=== PATIENT | female | born 1955 | race Two or more races ===

== ENCOUNTER 2018-11-10 19:24 | Emergency (ER) | payer MEDICARE ==
[~2018-11-10] VITALS: Ht 157.5 cm; Wt 49.9 kg
[2018-11-10 19:28] VITALS: BP 117/61
--- NOTE | 2018-11-10 19:28 | NUR ---
ED Nurse Note: pt came from [facility]. per ems pt had fallen. pt aox4, unsure if she hit her head, c/o of generalized body pain. per ems they placed ice pack on her neck prior to arrival. no abrasions noted, skin intact Addendum: 11/10/18 at 2103 by PDELEON Amendment undone in EDM - 11/10/18 at 2309 by PDELEON ED Nurse Note: pt came from [facility]. per ems pt had fallen. pt aox3 pt knows name, place, purpose, but not time, unsure if she hit her head, c/o of generalized body pain. per ems they placed ice pack on her neck prior to arrival. no abrasions noted, skin intact Addendum: 11/10/18 at 2308 by PDELEON ED Nurse Note: pt BIB [facility], came from [facility]. per ems pt had fallen. pt aox4, unsure if she hit her head, c/o of generalized body pain. per ems they placed ice pack on her neck prior to arrival. no abrasions noted, skin intact
--- NOTE | 2018-11-10 19:29 | NUR ---
ED Nurse Note: pinkness noted on right knee cap, old bruises noted on lower right abd.
[2018-11-10] MEDS ORDERED: Morphine Sulfate 2mg/ml Inj(IV/IM USE ONLY) IVP ONE (19:45)
[2018-11-10 20:10] LABS: BASOPHILS % (AUTO) 1.6 % (0.0-2.0); EOSINOPHILS % (AUTO) 1.5 % (0.0-3.0); HEMATOCRIT 36.3 % (37.0-47.0); LYMPHOCYTES % (AUTO) 27.7 % (20.0-45.0); MEAN CORPUSCULAR VOLUME 80 FL (80-99); MONOCYTES % (AUTO) 6.1 % (1.0-10.0); NEUTROPHILS % (AUTO) 63.2 % (45.0-75.0); PLATELET COUNT 102 K/UL (150-450); RED BLOOD COUNT 4.57 M/UL (4.20-5.40); RED CELL DISTRIBUTION WIDTH 12.8 % (11.6-14.8)
[2018-11-10 20:26] LABS: ANION GAP 9 mmol/L (5-15); BLOOD UREA NITROGEN 35 mg/dL (7-18); CALCIUM 8.9 MG/DL (8.5-10.1); CARBON DIOXIDE 24 MMOL/L (21-32); CHLORIDE 106 MMOL/L (98-107); CREATININE 1.4 MG/DL (0.55-1.30); POTASSIUM 4.1 MMOL/L (3.5-5.1); SODIUM 139 MMOL/L (136-145)
[2018-11-10 20:30] LABS: ALANINE AMINOTRANSFERASE 17 U/L (12-78); ALBUMIN 3.3 G/DL (3.4-5.0); ALBUMIN/GLOBULIN RATIO 0.8 (1.0-2.7); ALKALINE PHOSPHATASE 100 U/L (46-116); ASPARTATE AMINO TRANSFERASE 20 U/L (15-37); BILIRUBIN,TOTAL 0.1 MG/DL (0.2-1.0)
--- NOTE | 2018-11-10 21:03 | NUR ---
ED Nurse Note: vre/cre and mrsa swabs intiated per protocol since pt came from nursing facility. pt refused vre swabs.
[2018-11-10 21:23] LABS: APPEARANCE,URINE CLEAR; BILIRUBIN, URINE NEGATIVE (NEGATIVE); GLUCOSE, URINE (UA) NEGATIVE (NEGATIVE); KETONES,URINE NEGATIVE (NEGATIVE); LEUKOCYTE ESTERASE ,URINE 3+ (NEGATIVE); NITRITE,URINE NEGATIVE (NEGATIVE); PH,URINE 5 (4.5-8.0); PROTEIN,URINE NEGATIVE (NEGATIVE); UROBILINOGEN,URINE NORMAL MG/DL (0.0-1.0)
[2018-11-10 21:26] LABS: COLOR,URINE YELLOW
[2018-11-10 21:27] VITALS: BP 133/73
--- NOTE | 2018-11-10 21:27 | NUR ---
ED Nurse Note: pt doesnt c/o pain at this time, room lights dimmed, pt is resting in bed. provied another blanket for comfort.
[2018-11-10] MEDS ORDERED: levETIRAcetam 1,000mg/NS100ml 100 ML IVPB ONE (21:30)
[2018-11-10] MEDS ORDERED: Morphine Sulfate 2mg/ml Inj(IV/IM USE ONLY) IVP PRN (21:45)
[2018-11-10] MEDS ORDERED: Zolpidem 5mg tab ORAL PRN (21:45)
[2018-11-10] MEDS ORDERED: Miralax 17gm pkt ORAL PRN (21:45)
[2018-11-10] MEDS ORDERED: LORazepam Inj 2mg/ml 1ml IV PRN (21:45)
--- NOTE | 2018-11-10 22:27 | NUR ---
ED Nurse Note: keppra infused compeletly, pt is sleeping in bed, pt shows no signs of distress at the moment, vss.
--- NOTE | 2018-11-10 22:48 | Emergency Room Report ---
History of Present Illness General Chief Complaint: Multiple Trauma/Fall Source: EMS Present Illness HPI 63-year-old female presents to ED for evaluation. Brought in by EMS status post fall. Coming from [facility]. patient complaiing of hip pain and bilateral leg pain. pain is sharp 8/10 nonradiating. states she also hit her head. denies any headache, blurry vision nausea or vomiting. denies chest pain or SOB. denies any other injuries. no other aggravating or releving factors, denies any other associated symptoms Allergies: Coded Allergies: No Known Allergies (Unverified , 11/10/18) Patient History Past Medical History: DM, HTN, AFib, CVA/TIA, psych hx Past Surgical History: pacemaker Pertinent Family History: none Social History: Denies: smoking, alcohol use, drug use Now: No Immunizations: UTD Reviewed Nursing Documentation: PMH: Agreed; PSxH: Agreed Nursing Documentation-PMH Hx Cardiac Problems: Yes - weakness, A Fib,angela cardia, pacemarker L chest Hx Hypertension: Yes Hx Diabetes: Yes History Of Psychiatric Problem: Yes - schizophrenia, anxiety Hx Cerebrovascular Accident: Yes - hyperlipidemia, cerebral aneurysm Review of Systems All Other Systems: negative except mentioned in HPI Physical Exam Vital Signs Date Time Temp Pulse Resp B/P (MAP) Pulse Ox O2 Delivery O2 Flow Rate FiO2 11/10/18 19:14 98.2 99 16 95 Room Air 11/10/18 19:28 117/61 Sp02 EP Interpretation: reviewed, normal General Appearance: mild distress, cachetic Head: normocephalic Eyes: bilateral eye normal inspection, bilateral eye PERRL, bilateral eye EOMI ENT: normal ENT inspection Neck: normal inspection Respiratory: chest non-tender, lungs clear, normal breath sounds, speaking full sentences Cardiovascular #1: regular rate, rhythm, no edema Gastrointestinal: normal bowel sounds, non tender, soft, non-distended, no guarding, no rebound Rectal: deferred Genitourinary: no CVA tenderness Musculoskeletal: tender - bilateral leg. pelvis Neurologic: alert, oriented x3, responsive, motor strength/tone normal, sensory intact, speech normal Psychiatric: normal inspection Skin: normal inspection Lymphatic: normal inspection Procedures Critical Care Time Critical Care Time i. I feel this is a highly complex case requiring extensive working including EKG/Rhythm strip, Xray/CT/US, Blood/urine lab work, repeat exams while in ED, and administration of strong opiates/narcotics for pain control, admission to hospital or close patient follow up. Total time: 60 min bedside evaluation and treatment excludes procedures (EKG). Reason for critical care: Subarachnoid hemorrhage Possible complications: hypotension, hypertension, VT, shock, arrhythmias, metabolic acidosis, end organ damage, respiratory failure. Interventions: Labs, x-rays, CT head and CT pelvis. Keppra. Discussion with neurosurgery at [facility] Course: Patient presenting with hip pain and leg pain status post fall. Also hit head. CT head shows subarachnoid with no mass effect or midline shift. CT pelvis negative. Patient on Lovenox 40 units daily. Patient given Keppra. No focal deficits. Protecting airway. Discussed with neurosurgery at [facility]. Consultations: nursing staff, EMS, family Performed by: Dr Frank Tolerated well condition = critical j. because of unstable vital signs this patient had a condition that could potentially threaten life or limb. I feel this is a critical patient who required my full attention while patient was considered critical. Total Critical Care Time excluding procedures was greater than 60 minutes Medical Decision Making Diagnostic Impression: Primary Impression: Subarachnoid hemorrhage Additional Impressions: Fall Qualified Codes: W19.XXXA - Unspecified fall, initial encounter Chronic kidney disease Qualified Codes: N18.9 - Chronic kidney disease, unspecified ER Course Hospital Course 63-year-old female presents with head injury and hip and leg pain status post fall Differential diagnosis includes- breakthrough seizure, alcohol abuse, noncompliance with medication Clinical course Patient placed on stretcher. Initial history and physical I ordered labs, pain meds, CT head and Pelvis. xrays of lower legs Labs- BUN/Cr elevated, no leukocytosis, hemoglobin/hematocrit stable X-rays of lower extremity show no obvious fracture or dislocation CT pelvis negative CT head shows subarachnoid with no midline shift or mass effect Patient protecting airway. No focal neurological deficits. Does not require intubation. BP stable Given loading dose of Keppra. Patient on Lovenox 40 units daily last dose was 13 hours prior to now. Discussed with neurosurgery the protamine will not be given Patient will be transferred at [facility] for higher level of care. Case endorsed to neurosurgeon i. I feel this is a highly complex case requiring extensive working including EKG/Rhythm strip, Xray/CT/US, Blood/urine lab work, repeat exams while in ED, and administration of strong opiates/narcotics for pain control, admission to hospital or close patient follow up. Diagnosis - subarachnoid hemorrhage, fall, CKD transferred in critical condition Labs Test 11/10/18 19:56 11/10/18 21:02 White Blood Count 7.0 K/UL (4.8-10.8) Red Blood Count 4.57 M/UL (4.20-5.40) Hemoglobin 12.0 G/DL (12.0-16.0) Hematocrit 36.3 % (37.0-47.0) Mean Corpuscular Volume 80 FL (80-99) Mean Corpuscular Hemoglobin 26.2 PG (27.0-31.0) Mean Corpuscular Hemoglobin Concent 33.0 G/DL (32.0-36.0) Red Cell Distribution Width 12.8 % (11.6-14.8) Platelet Count 102 K/UL (150-450) Mean Platelet Volume 7.6 FL (6.5-10.1) Neutrophils (%) (Auto) 63.2 % (45.0-75.0) Lymphocytes (%) (Auto) 27.7 % (20.0-45.0) Monocytes (%) (Auto) 6.1 % (1.0-10.0) Eosinophils (%) (Auto) 1.5 % (0.0-3.0) Basophils (%) (Auto) 1.6 % (0.0-2.0) Prothrombin Time 10.4 SEC (9.30-11.50) Prothromb Time International Ratio 1.0 (0.9-1.1) Activated Partial Thromboplast Time 26 SEC (23-33) Sodium Level 139 MMOL/L (136-145) Potassium Level 4.1 MMOL/L (3.5-5.1) Chloride Level 106 MMOL/L (98-107) Carbon Dioxide Level 24 MMOL/L (21-32) Anion Gap 9 mmol/L (5-15) Blood Urea Nitrogen 35 mg/dL (7-18) Creatinine 1.4 MG/DL (0.55-1.30) Estimat Glomerular Filtration Rate 37.8 mL/min (>60) Glucose Level 101 MG/DL (74-106) Calcium Level 8.9 MG/DL (8.5-10.1) Total Bilirubin 0.1 MG/DL (0.2-1.0) Aspartate Amino Transf (AST/SGOT) 20 U/L (15-37) Alanine Aminotransferase (ALT/SGPT) 17 U/L (12-78) Alkaline Phosphatase 100 U/L (46-116) Total Protein 7.4 G/DL (6.4-8.2) Albumin 3.3 G/DL (3.4-5.0) Globulin 4.1 g/dL Albumin/Globulin Ratio 0.8 (1.0-2.7) Urine Color Yellow Urine Appearance Clear Urine pH 5 (4.5-8.0) Urine Specific Hurt 1.020 (1.005-1.035) Urine Protein Negative (NEGATIVE) Urine Glucose (UA) Negative (NEGATIVE) Urine Ketones Negative (NEGATIVE) Urine Blood Negative (NEGATIVE) Urine Nitrite Negative (NEGATIVE) Urine Bilirubin Negative (NEGATIVE) Urine Urobilinogen Normal MG/DL (0.0-1.0) Urine Leukocyte Esterase 3+ (NEGATIVE) Urine RBC 2-4 /HPF (0 - 2) Urine WBC 5-10 /HPF (0 - 2) Urine Squamous Epithelial Cells Moderate /LPF (NONE/OCC) Urine Bacteria Moderate /HPF (NONE) Other X-Ray Diagnostic Results Other X-Ray Diagnostic Results #1: X-Ray ordered: R femur # of Views/Limited Vs Complete: 3 View Indication: Pain EP Interpretation: Yes Interpretation: no dislocation, no soft tissue swelling, no fractures Impression: No acute disease Electronically Signed by: Electronically signed by Wero Frank MD Other X-Ray Diagnostic Results #2: X-Ray ordered: L femur # of Views/Limited Vs Complete: 3 View Indication: Pain EP Interpretation: Yes Interpretation: no dislocation, no soft tissue swelling, no fractures Impression: No acute disease Electronically Signed by: Electronically signed by Wero Frank MD Other X-Ray Diagnostic Results #3: X-Ray ordered: R tibfib # of Views/Limited Vs Complete: 2 View Indication: Pain EP Interpretation: Yes Interpretation: no dislocation, no soft tissue swelling, no fractures Impression: No acute disease Electronically Signed by: Electronically signed by Wero Frank MD Other X-Ray Diagnostic Results #4: X-Ray ordered: L tibfib # of Views/Limited Vs Complete: 2 View Indication: Pain EP Interpretation: Yes Interpretation: no dislocation, no soft tissue swelling, no fractures Impression: No acute disease Electronically Signed by: Electronically signed by Wero Frank MD CT/MRI/US Diagnostic Results CT/MRI/US Diagnostic Results #1: Imaging Test Ordered: CT Head Impression subarachnoid hemorrhage. no midline shift. no mass effect CT/MRI/US Diagnostic Results #2: Imaging Test Ordered: CT Pelvis Impression no acute process Last Vital Signs Date Time Temp Pulse Resp B/P (MAP) Pulse Ox O2 Delivery O2 Flow Rate FiO2 11/10/18 21:27 98.3 69 18 133/73 100 Room Air Status: improved Disposition: [facility] Condition: Critical Referrals: En Ackerman DO (PCP) Wero Frank MD November 10, 2018 22:48
--- NOTE | 2018-11-10 23:04 | NUR ---
ED Nurse Note: 911 at bedside, report given to anuja meredith from [facility]. pt is aox3, skin intact, no signs of distress. pt is on room air. vss at the moment. pt has no belongings.
[2018-11-10 23:06] VITALS: BP 119/58
[2018-11-10 23:41] LABS: CREATINE KINASE 135 U/L (26-308)
[2018-11-11] MEDS ORDERED: NovoLOG Insulin Flexpen SUBQ SCH (06:30)
[2018-11-11] MEDS ORDERED: Heparin 5000 units/ml inj SUBQ SCH (09:00)
--- NOTE | 2018-11-11 10:27 | Diagnostic Imaging Report ---
Indication: Headache and head trauma Technique: Contiguous 5 mm thick transaxial imaging of the head obtained in a Siemens Sensation [address] scanner. Soft tissue and bone windows generated. Automatic Exposure Control was utilized. Total Dose length Product (DLP): 1386.[address] Dose Index Volume (CTDIvol): 70.38 mGy Comparison: none Findings: There is a tiny less than 1 cm rounded focus of high density in the left sylvian fissure region associated with the greater wing of the sphenoid. This may be a small subdural hematoma or possibly subarachnoid blood in the sylvian fissure. There is no fracture. There is no mass effect or edema within the brain. Moderate generalized atrophy of the brain noted. Fairly extensive patchy low-attenuation involving subcortical and periventricular white matter demonstrated. The ventricles are prominent. There is a tiny cystic focus of the right basal ganglia. IMPRESSION: Suspected tiny acute bleed less than 1 cm in size either subdural hematoma versus subarachnoid focus left temporal region. No associated mass effect or edema. Involutional changes as described above. Critical value communication. Findings were discussed via telephone with the emergency department physician by Dr. Green [facility] at 20:40 11/10/2018. The CT scanner at [facility] is accredited by the [employer] and the scans are performed using dose optimization techniques as appropriate to a performed exam including Automatic Exposure control.
--- NOTE | 2018-11-11 11:00 | Diagnostic Imaging Report ---
Indication: Pelvic pain trauma Technique: Continuous helical transaxial imaging of the pelvis was obtained from the iliac crest to the pubic symphysis. Coronal 2-D reformats were also obtained. Study obtained in a Siemens sensation [address] Intravenous non-ionic contrast was administered. Total Dose length Product (DLP): 273.[address] Dose Index Volume (CTDIvol): 9.27 mGy Comparison: None Findings: There is no acute fracture identified. There is no malalignment concerning for injury identified. The bones are osteopenic. There is vacuum phenomena and subchondral sclerosis involving the sacroiliac joints. Subchondral sclerosis and mild subchondral cyst formation demonstrated within both hips consistent with arthrosis. Arterial calcifications are present. There are diverticula noted in the stomach sigmoid colon. The appendix is seen and appears normal. The uterus is noted. There is no free fluid in the pelvis identified. There is an unusually kyphotic lower sacrum. IMPRESSION: No acute fracture identified. 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 Unusually curved and kyphotic appearing lower sacrum. Not certain if this is congenital or consequence of an old injury. Diverticulosis of the colon. Atherosclerotic vascular disease. [facility] has communicated the preliminary results to the Emergency Department. Their findings are largely concordant with this report. The CT scanner at [facility] is accredited by the [employer] and the scans are performed using dose optimization techniques as appropriate to a performed exam including Automatic Exposure control.
--- NOTE | 2018-11-11 11:10 | Diagnostic Imaging Report ---
Indication: right leg pain Comparison: None Findings: Two views of the right tibia and fibula were obtained. No acute fracture, malalignment, or periosteal reaction are identified. Bones are osteopenic. Soft tissues are unremarkable. Impression: Negative examination of the tibia and fibula
--- NOTE | 2018-11-11 11:11 | Diagnostic Imaging Report ---
Indication: Left leg pain Comparison: None Findings: Two views of the left tibia and fibula were obtained. No acute fracture, malalignment, or periosteal reaction are identified. Soft tissues are unremarkable. Osteopenia noted Impression: No acute injury.
--- NOTE | 2018-11-11 11:13 | Diagnostic Imaging Report ---
Indication: Pain Thigh pain Findings: 2 views of the right femur were obtained. No acute fractures, malalignment, erosions or periostitis are identified. Bones are osteopenic. Soft tissues are unremarkable. Impression: Negative examination of the femur
--- NOTE | 2018-11-11 11:13 | Diagnostic Imaging Report ---
Indication: Left thigh pain Comparison: None Findings: 2 views of the left femur were obtained. No acute fractures, malalignment, erosions or periostitis are identified. Bones are osteopenic. Soft tissues are unremarkable. Impression: Negative examination of the femur
== END 2018-11-10 23:04 | disposition short-term general hospital (02) ==
LOC: EDBD 19:24 → EMR 19:59
DX: I60.9 Nontraumatic subarachnoid hemorrhage, unspecified (principal); M79.605 Pain in left leg; M79.604 Pain in right leg; I12.9 Hypertensive chronic kidney disease with stage 1 through stage 4 chronic kidney disease, or unspecified chronic kidney disease; E11.22 Type 2 diabetes mellitus with diabetic chronic kidney disease; N18.9 Chronic kidney disease, unspecified; Z86.73 Personal history of transient ischemic attack (TIA), and cerebral infarction without residual deficits; Z95.0 Presence of cardiac pacemaker; F20.9 Schizophrenia, unspecified; F41.9 Anxiety disorder, unspecified; E78.5 Hyperlipidemia, unspecified; M85.862 Other specified disorders of bone density and structure, left lower leg; M85.861 Other specified disorders of bone density and structure, right lower leg; M16.0 Bilateral primary osteoarthritis of hip; K57.90 Diverticulosis of intestine, part unspecified, without perforation or abscess without bleeding; I70.90 Unspecified atherosclerosis
CPT/HCPCS: 36415; 70450; 72192; 73552; 73590; 80053; 81001; 82043; 82550; 83935; 84300; 84550; 85025; 85610; 85730; 87081; 87086; 89050; 96374; 96375; 99291; J1953; J2270